=== PATIENT | female | born 1955 | race African-American/Black ===

== ENCOUNTER 2016-12-28 22:39 | Emergency (ER) | payer MEDICARE, MEDICAID ==
[~2016-12-28] VITALS: Ht 162.6 cm; Wt 59.0 kg
[~2016-12-28 22:39] MED LIST: ALBUTEROL SULF8.5 GM INH; AZITHROMYCIN250 MG ORAL; IBUPROFEN600 MG ORAL; NKM; NORVIR100 MG ORAL; TRUVADA 200 MG1 EAC1 ORAL; [UNRECOGNIZED DRUG - OTHER] PO
[2016-12-28] MEDS ORDERED: NKM (23:25)
[2016-12-28] MEDS ORDERED: Ketorolac 60mg Inj IM ONE (23:45)
[2016-12-29] MEDS ORDERED: IBUPROFEN600 M1 PO (01:30)
[2016-12-29] MEDS ORDERED: CYCLOBENZAPRINE10 MG ORAL (01:30)
[2016-12-29 01:40] VITALS: BP 132/84
--- NOTE | 2016-12-29 11:36 | Diagnostic Imaging Report ---
Indication: PAIN Technique: 3 views of the lumbar spine Comparison: None Findings:Bony alignment is normal. Vertebral body heights are preserved. The disc spaces are preserved. The pedicles are intact. Sacral arches are preserved. Sacroiliac joint spaces are preserved. Impression:Negative This agrees with the preliminary interpretation provided by the emergency room physician
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
--- NOTE | 2016-12-29 12:00 | Diagnostic Imaging Report ---
Indication: PAIN Technique: 3 views of the cervical spine Comparison: none Findings: Lateral view is slightly blurry. No prevertebral soft tissue swelling. No acute fractures. No dislocations. Is degenerative narrowing of the C4-5 disc, minimally of the C2-3 disc. Remainder of the disc spaces are preserved. Impression: No acute bony trauma Degenerative changes, as described This agrees with the preliminary interpretation provided by the emergency room physician
--- NOTE | 2016-12-29 14:26 | Diagnostic Imaging Report ---
Indication: PAIN Technique: 3 views of the left knee Comparison: None Findings:Joint spaces are preserved. No acute fractures. No dislocations. No suprapatellar effusion. Impression:Negative This agrees with the preliminary interpretation provided by the emergency room physician
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
== END 2016-12-29 01:40 | disposition home or self-care (01) ==
LOC: EMR 23:55
DX: S39.012A Strain of muscle, fascia and tendon of lower back, initial encounter (principal); S16.1XXA Strain of muscle, fascia and tendon at neck level, initial encounter; S40.012A Contusion of left shoulder, initial encounter; V43.52XA Car driver injured in collision with other type car in traffic accident, initial encounter; Y93.9 Activity, unspecified; Y92.410 Unspecified street and highway as the place of occurrence of the external cause; J45.909 Unspecified asthma, uncomplicated
CPT/HCPCS: 72020; 72040; 99284

== ENCOUNTER 2018-06-26 00:12 | Inpatient (IN) | payer MEDICARE, MEDICAID ==
[~2018-06-26] VITALS: Ht 170.2 cm; Wt 64.0 kg
[2018-06-26] VITALS (7 sets, daily range): BP systolic 98–120; BP diastolic 67–83
[~2018-06-26 00:12] MED LIST changes: +CYCLOBENZAPRINE10 MG ORAL; +IBUPROFEN600 M1 PO
[2018-06-26] MEDS ORDERED: Sodium Chloride 500ML 500 ML IV ONE (00:48)
--- NOTE | 2018-06-26 00:50 | Emergency Room Report ---
History of Present Illness General Chief Complaint: General Complaint Source: Patient Present Illness HPI Patient present with complaints of cough and congestion Ongoing for the past several days patient reports that she recently flew back from a Has been having increased mucus production Denies any vomiting or diarrhea Patient had complained of pain to the upper chest region Mainly has a discomfort with cough Otherwise denies any chest heaviness denies any calf pain or swelling Patient does have green phlegm production with the cough Allergies: Coded Allergies: No Known Allergies (Unverified , 09/13/15) Patient History Past Medical History: see triage record Pertinent Family History: none Now: No Reviewed Nursing Documentation: PMH: Agreed; PSxH: Agreed Nursing Documentation-PMH Hx Asthma: Yes Review of Systems All Other Systems: negative except mentioned in HPI Physical Exam Vital Signs Date Time Temp Pulse Resp B/P (MAP) Pulse Ox O2 Delivery O2 Flow Rate FiO2 06/26/18 00:19 98.4 90 16 102/69 98 Room Air 98.4 Sp02 EP Interpretation: reviewed, normal General Appearance: well appearing, no apparent distress Head: normocephalic, atraumatic Eyes: bilateral eye PERRL, bilateral eye EOMI ENT: hearing grossly normal, normal pharynx, TMs + canals normal, uvula midline Neck: full range of motion, supple, no meningismus, no bony tend Respiratory: lungs clear, normal breath sounds, no rhonchi, no respiratory distress, no retraction, no accessory muscle use Cardiovascular #1: normal peripheral pulses, regular rate, rhythm, no edema, no gallop, no JVD, no murmur Gastrointestinal: normal bowel sounds, non tender, soft, no mass, no organomegaly, non-distended, no guarding, no hernia, no pulsatile mass, no rebound Genitourinary: no CVA tenderness Musculoskeletal: normal inspection Neurologic: oriented x3, responsive, mobile product manager III-XII nml as tested, motor strength/ tone normal, sensory intact Psychiatric: mood/affect normal Skin: normal color, no rash, warm/dry, palpation normal Lymphatic: normal inspection, no adenopathy Medical Decision Making Diagnostic Impression: Primary Impression: ACS (acute coronary syndrome) ER Course Patient is a fairly complex patient with multiple differential to consideration including but not limited to cardiac cardiopulmonary and vascular emergencies Patient's EKG shows nonspecific changes Troponin is negative Patient's x-ray on the right lower lobe shows questionable marking however likely biological grisel Patient was provided with aspirin given the EKG changes and the patient's complaints she was admitted for further inpatient care D-dimer was negative Labs Test 06/26/18 01:20 White Blood Count 10.3 K/UL (4.8-10.8) Red Blood Count 5.56 M/UL (4.20-5.40) Hemoglobin 16.9 G/DL (12.0-16.0) Hematocrit 50.6 % (37.0-47.0) Mean Corpuscular Volume 91 FL (80-99) Mean Corpuscular Hemoglobin 30.3 PG (27.0-31.0) Mean Corpuscular Hemoglobin Concent 33.3 G/DL (32.0-36.0) Red Cell Distribution Width 12.2 % (11.6-14.8) Platelet Count 250 K/UL (150-450) Mean Platelet Volume 7.0 FL (6.5-10.1) Neutrophils (%) (Auto) 61.9 % (45.0-75.0) Lymphocytes (%) (Auto) 29.6 % (20.0-45.0) Monocytes (%) (Auto) 6.2 % (1.0-10.0) Eosinophils (%) (Auto) 1.7 % (0.0-3.0) Basophils (%) (Auto) 0.6 % (0.0-2.0) D-Dimer 0.29 mg/L FEU (0.00-0.49) Sodium Level 141 MMOL/L (136-145) Potassium Level 3.9 MMOL/L (3.5-5.1) Chloride Level 105 MMOL/L (98-107) Carbon Dioxide Level 28 MMOL/L (21-32) Anion Gap 8 mmol/L (5-15) Blood Urea Nitrogen 33 mg/dL (7-18) Creatinine 1.5 MG/DL (0.55-1.30) Estimat Glomerular Filtration Rate 42.9 mL/min (>60) Glucose Level 93 MG/DL (74-106) Calcium Level 10.3 MG/DL (8.5-10.1) Total Bilirubin 0.2 MG/DL (0.2-1.0) Aspartate Amino Transf (AST/SGOT) 23 U/L (15-37) Alanine Aminotransferase (ALT/SGPT) 28 U/L (12-78) Alkaline Phosphatase 107 U/L (46-116) Total Creatine Kinase 86 U/L (26-308) Creatine Kinase MB 0.7 NG/ML (0.0-3.6) Creatine Kinase MB Relative Index 0.8 Troponin I 0.002 ng/mL (0.000-0.056) Pro-B-Type Natriuretic Peptide 84 pg/mL (0-125) Total Protein 8.8 G/DL (6.4-8.2) Albumin 3.8 G/DL (3.4-5.0) Globulin 5.0 g/dL Albumin/Globulin Ratio 0.8 (1.0-2.7) EKG Diagnostic Results Rate: normal Rhythm: NSR ST Segments: other - Nonspecific ST changes Rhythm Strip Diag. Results EP Interpretation: yes Rate: 67 Rhythm: NSR, no PVC's, no ectopy Chest X-Ray Diagnostic Results Chest X-Ray Diagnostic Results : Chest X-Ray Ordered: Yes # of Views/Limited/Complete: 1 View Indication: Chest Pain EP Interpretation: Yes Interpretation: no consolidation, no effusion, no pneumothorax, other - Nonspecific right lower lobe marking Impression: No acute disease Electronically Signed by: González Wells DO Last Vital Signs Date Time Temp Pulse Resp B/P (MAP) Pulse Ox O2 Delivery O2 Flow Rate FiO2 06/26/18 00:19 98.4 90 16 102/69 98 Room Air 98.4 Status: improved Disposition: ADMITTED INPATIENT Condition: Serious Gonzláez Wells DO Jun 26, 2018 00:50
[2018-06-26] MEDS ORDERED: Ketorolac 30mg Inj IV ONE (01:00)
[2018-06-26] MEDS ORDERED: Norco 5mg/325mg tab ORAL ONE (01:00)
[2018-06-26 01:30] LABS: BASOPHILS % (AUTO) 0.6 % (0.0-2.0); EOSINOPHILS % (AUTO) 1.7 % (0.0-3.0); HEMATOCRIT 50.6 % (37.0-47.0); HEMOGLOBIN 16.9 G/DL (12.0-16.0); LYMPHOCYTES % (AUTO) 29.6 % (20.0-45.0); MEAN CORPUSCULAR VOLUME 91 FL (80-99); MONOCYTES % (AUTO) 6.2 % (1.0-10.0); NEUTROPHILS % (AUTO) 61.9 % (45.0-75.0); PLATELET COUNT 250 K/UL (150-450); RED BLOOD COUNT 5.56 M/UL (4.20-5.40); RED CELL DISTRIBUTION WIDTH 12.2 % (11.6-14.8); WHITE BLOOD COUNT 10.3 K/UL (4.8-10.8)
[2018-06-26 01:50] LABS: ANION GAP 8 mmol/L (5-15); BLOOD UREA NITROGEN 33 mg/dL (7-18); CALCIUM 10.3 MG/DL (8.5-10.1); CARBON DIOXIDE 28 MMOL/L (21-32); CHLORIDE 105 MMOL/L (98-107); CREATININE 1.5 MG/DL (0.55-1.30); POTASSIUM 3.9 MMOL/L (3.5-5.1); SODIUM 141 MMOL/L (136-145)
[2018-06-26 02:04] LABS: ALANINE AMINOTRANSFERASE 28 U/L (12-78); ALBUMIN 3.8 G/DL (3.4-5.0); ALBUMIN/GLOBULIN RATIO 0.8 (1.0-2.7); ALKALINE PHOSPHATASE 107 U/L (46-116); ASPARTATE AMINO TRANSFERASE 23 U/L (15-37); BILIRUBIN,TOTAL 0.2 MG/DL (0.2-1.0); CKMB 0.7 NG/ML (0.0-3.6); CREATINE KINASE 86 U/L (26-308)
[2018-06-26] MEDS ORDERED: Nitroglycerin 2% oint pkt TOPIC ONE (03:30)
[2018-06-26] MEDS ORDERED: NORVIR100 M2 (05:54)
[2018-06-26] MEDS ORDERED: PREZISTA600 MG (05:54)
[2018-06-26] MEDS ORDERED: TRUVADA1 TAB (05:54)
[2018-06-26 08:33] LABS: CHOLESTEROL 183 MG/DL (< 200); HDL CHOLESTEROL 51 MG/DL (40-60); TRIGLYCERIDES 85 MG/DL (30-150)
[2018-06-26] MEDS: Aspirin Baby 81mg ORAL SCH (08:44)
[2018-06-26] MEDS: Heparin 5000 units/ml inj SUBQ SCH ×2 (08:49→20:42)
--- NOTE | 2018-06-26 10:13 | Diagnostic Imaging Report ---
Indication: Shortness of breath Technique: One view of the chest Comparison: 10/25/2015 Findings: Nodular opacity at the right lung base appears similar to the prior study, likely represents a nipple shadow as a similar opacity projects just outside the chest wall on the left. Lungs and pleural spaces are otherwise clear. Heart size is normal. The aorta is calcified. Impression: No acute process
[2018-06-26] MEDS ORDERED: Ritonavir 100mg tab ORAL SCH (12:30)
[2018-06-26] MEDS ORDERED: Darunavir 600mg tab ORAL SCH (12:30)
[2018-06-26] MEDS: cefTRIAXone 1 GM in D5W 55 ML IVPB SCH (16:18)
[2018-06-26] MEDS: Azithromycin 500 MG in D5W 275 ML IV SCH (16:19)
[2018-06-26] MEDS ORDERED: Patient's Own Med - Norvir 100mg ORAL SCH (18:00)
[2018-06-26] MEDS: Albuterol/Ipratropium 3ml neb HHN SCH ×2 (19:07→23:06)
[2018-06-26] MEDS: Patient's Own Med - Norvir 100mg ORAL SCH (20:40)
[2018-06-26] MEDS: HYDROcodone/Acetamin 10/325 tab ORAL PRN (20:53)
--- NOTE | 2018-06-26 22:45 | Consultation ---
DATE OF ADMISSION: 06/26/2018 HISTORY & PHYSICIAL REASON FOR ADMISSION: Chest pain, cough, and shortness of breath. HISTORY OF PRESENT ILLNESS: This is a 62-year-old female, who is HIV positive, but does not have any known history of cardiovascular disease. She has had several days of progressive cough and congestion. She has felt worse yesterday and developed chest pain prompting her to come to the emergency room. She is usually compliant with medications. She has continued to smoke, but has decreased her smoking significantly. The patient has had stressors including a recent . PAST MEDICAL HISTORY: HIV and COPD. MEDICATIONS: Reviewed and reconciled. ALLERGIES: None known. FAMILY HISTORY: Noncontributory. SOCIAL HISTORY: Negative for alcohol or substance abuse at this time. She does continue to smoke and has a [id number] smoking history. REVIEW OF SYSTEMS: No fevers or chills. Her sputum is green. She has not been on steroids. She does not use inhalers regularly. She denies any history of endocarditis, rheumatic heart disease, or high blood pressure. There is no history of thyroid disorder or diabetes. There is no history of seizure or stroke. She has not noted any change in bowel or urinary habits. She takes HIV medications regularly and has not had any opportunistic infections. OBJECTIVE: VITAL SIGNS: Blood pressure 102/69, pulse 90, respirations 16, afebrile, and room air oxygen saturations 98%. GENERAL: Thin and frail, but in no acute distress. HEENT: Conjunctivae pink. Oropharynx clear. Mucous membranes moist. No thrush. NECK: Supple. Jugular venous pressure normal. LUNGS: With coarse breath sounds and rhonchi. No wheezing. CARDIAC: Regular rhythm and rate. Normal S1, S2. No murmur, rub, or gallop. BREASTS: Without discrete masses. ABDOMEN: Soft and nontender. EXTREMITIES: Good pulses. No edema. NEUROLOGIC: Nonfocal. SKIN: Intact. DIAGNOSTIC DATA: EKG sinus rhythm with nonspecific ST-T wave changes. Troponin level negative x2. Albumin 3.8. BUN 33 and creatinine 1.5. Sodium 141, bicarb 28, and potassium 3.9. Total cholesterol is 183 with LDL of 106 and HDL 51. Chest x-ray reveals no acute process. IMPRESSION: 1. Pleuritic chest pain. Low suspicion for acute coronary insufficiency. 2. Acute bronchitis. 3. Paroxysmal bronchospasm. 4. Nicotine addiction. 5. HIV-positive. 6. Acute kidney injury likely due to hypovolemia and dehydration. PLAN: 1. Cardiac monitoring. 2. Repeat troponin. 3. Anti-platelet therapy with aspirin. 4. Intravenous fluid hydration. 5. Inhaled bronchodilators. 6. Empiric antibiotics. 7. Sputum cultures. 8. DVT prophylaxis. 9. Continue HIV regimen. Tyrell Duran M.D. DR: OLI JOB#: [id number] CC: BELLE
[2018-06-27] VITALS: BP 97/56
[2018-06-27] MEDS: Albuterol/Ipratropium 3ml neb HHN SCH ×6 (03:24→22:49)
[2018-06-27 04:00] VITALS: BP 102/57
[2018-06-27 08:00] VITALS: BP 102/58
[2018-06-27 08:08] LABS: BASOPHILS % (AUTO) 0.6 % (0.0-2.0); EOSINOPHILS % (AUTO) 1.7 % (0.0-3.0); HEMATOCRIT 44.2 % (37.0-47.0); HEMOGLOBIN 14.5 G/DL (12.0-16.0); LYMPHOCYTES % (AUTO) 32.2 % (20.0-45.0); MEAN CORPUSCULAR VOLUME 90 FL (80-99); MONOCYTES % (AUTO) 5.2 % (1.0-10.0); NEUTROPHILS % (AUTO) 60.3 % (45.0-75.0); PLATELET COUNT 230 K/UL (150-450); RED CELL DISTRIBUTION WIDTH 12.3 % (11.6-14.8); WHITE BLOOD COUNT 7.2 K/UL (4.8-10.8)
[2018-06-27 08:42] LABS: ALANINE AMINOTRANSFERASE 23 U/L (12-78); ALBUMIN 3.3 G/DL (3.4-5.0); ALBUMIN/GLOBULIN RATIO 0.7 (1.0-2.7); ALKALINE PHOSPHATASE 85 U/L (46-116); ANION GAP 7 mmol/L (5-15); ASPARTATE AMINO TRANSFERASE 16 U/L (15-37); BILIRUBIN,TOTAL 0.3 MG/DL (0.2-1.0); BLOOD UREA NITROGEN 19 mg/dL (7-18); CALCIUM 9.1 MG/DL (8.5-10.1); CARBON DIOXIDE 28 MMOL/L (21-32); CHLORIDE 106 MMOL/L (98-107); POTASSIUM 4.6 MMOL/L (3.5-5.1); SODIUM 140 MMOL/L (136-145)
[2018-06-27] MEDS: cefTRIAXone 1 GM in D5W 55 ML IVPB SCH (08:52)
[2018-06-27] MEDS: Aspirin Baby 81mg ORAL SCH (08:52)
[2018-06-27] MEDS: Patient's Own Med - Truvada 200/300mg ORAL SCH (08:53)
[2018-06-27] MEDS: Patient's Own Med - Norvir 100mg ORAL SCH ×2 (08:53→20:18)
[2018-06-27] MEDS: Heparin 5000 units/ml inj SUBQ SCH ×2 (08:54→20:21)
[2018-06-27 12:00] VITALS: BP 113/77
[2018-06-27] MEDS: Azithromycin 500 MG in D5W 275 ML IV SCH (15:57)
[2018-06-27 16:00] VITALS: BP 128/69
[2018-06-27 20:00] VITALS: BP 112/77
[2018-06-27] MEDS: HYDROcodone/Acetamin 10/325 tab ORAL PRN (20:45)
--- NOTE | 2018-06-27 23:15 | Consultation ---
DATE OF CONSULTATION: 06/27/2018 INFECTIOUS DISEASES CONSULTATION CONSULTING PHYSICIAN: Reg Delgado M.D. REFERRING PHYSICIAN: Tyrell Duran M.D. REASON FOR CONSULTATION: Pneumonia. HISTORY OF PRESENTING ILLNESS: This is a 62-year-old lady with history of HIV as well as asthma and COPD, who comes in with fever and chills along with cough, congestion, and shortness of breath. An Infectious Diseases consultation has been obtained for antibiotics. PAST MEDICAL HISTORY: 1. History of HIV. 2. COPD. 3. History of asthma. 4. History of shingles. She does not recall any other opportunistic infections. SOCIAL HISTORY: She is a smoker. She used to drink alcohol, not any more. She has history of cocaine, snorting previously. No history of intravenous drug use. FAMILY HISTORY: Noncontributory. REVIEW OF SYSTEMS: RESPIRATORY: She had fever and chills. She has cough. She has shortness of breath. CARDIAC: She has chest pain. No palpitations. No dizziness. No syncope. GASTROINTESTINAL: She denies any nausea. She had vomiting. No abdominal pain or diarrhea. MUSCULOSKELETAL: She complains of back pain. MEDICATIONS: As an inpatient, she is taking her HIV medications, albuterol, ipratropium, azithromycin, ceftriaxone, aspirin, subcu heparin, and [place]. ALLERGIES: No known drug allergies. PHYSICAL EXAMINATION: VITAL SIGNS: Temperature of 97.9 degrees, T-max of 98 degrees, pulse of 77, respiratory rate of 18, blood pressure 102/58, and O2 saturation of 97%. HEENT: Pupils are equally reactive to light and accommodation. Mouth appears clean without thrush. NECK: Supple. No adenopathy. No JVD. CARDIOVASCULAR: Regular rate and rhythm. No murmurs. LUNGS: Clear to auscultation bilaterally. No crackles. No wheezes. ABDOMEN: Soft and nontender. No organomegaly. EXTREMITIES: No cyanosis, no clubbing, and no edema. LABORATORY AND DIAGNOSTIC DATA: White count 7.2, hemoglobin 14.5, hematocrit 44.2, MCV 90, platelet count of 230,000, and neutrophils of 60%. Sodium 140, potassium 4.6, chloride 106, bicarb 28, BUN 19, creatinine 1, glucose 81, and calcium 9.1. Total bilirubin 0.3. AST 16, ALT 23, and alkaline phosphatase 85. Troponin 0. Total protein 7.8. Albumin 3.3. Chest x-ray showing nodular opacity in the right lung base. ASSESSMENT: This is a 62-year-old lady with, 1. History of HIV with unknown T-cell count, who comes in with possible bronchitis exacerbation, would like to rule out pneumonia as a possibility. 2. History of HIV. 3. History of asthma. PLAN: 1. We will order sputum for Gram-stain and culture. 2. We will order for serum Legionella antibody and mycoplasma serology. 3. Continue ceftriaxone and azithromycin. 4. We will order a T-cell count per the patient's request. 5. We will continue anti-retrovirals. 6. We will follow up cultures and adjust antibiotics accordingly. I would like to thank, Dr. Duran for this consultation. Reg Delgado M.D. DR: MELANIE JOB#: [id number] CC: Tyrell Duran M.D.
[2018-06-28] VITALS (7 sets, daily range): BP systolic 102–127; BP diastolic 63–90
[2018-06-28] MEDS: Albuterol/Ipratropium 3ml neb HHN SCH ×6 (03:35→23:00)
--- NOTE | 2018-06-28 04:45 | Progress Note ---
DATE: 06/27/2018 INTERNAL MEDICINE AND CARDIOLOGY PROGRESS NOTE SUBJECTIVE: The patient still has cough and congestion, but feels better with less shortness of breath. Sputum production is still present; however, there is no specimen in the micro lab. No results of specimen yet in the micro lab. OBJECTIVE: LUNGS: Coarse breath sounds. Scattered rhonchi. No wheezing. HEART: Regular rhythm and rate. Normal S1 and S2. ABDOMEN: Soft. EXTREMITIES: No edema. LABORATORY STUDIES: White count 7.2 and hemoglobin 14.5. Chemistry panel within normal limits other than BUN of 19 and creatinine 1. Troponin negative. Albumin 3.3. nuclear monitoring technician, sinus with occasional PVCs. IMPRESSION: 1. Chronic obstructive pulmonary disease exacerbation. 2. Bronchopneumonia. 3. Mild protein-calorie malnutrition. 4. HIV positive. 5. Prerenal azotemia with acute kidney injury, improving. 6. Hypovolemia and dehydration, improving. 7. Nonsustained ventricular ectopy. PLAN: 1. Adjust IV fluids. 2. Maintain IV antimicrobials. 3. Await sputum cultures. 4. Inhaled bronchodilators. 5. Infectious Disease consultation pending regarding HIV regimen. 6. Discontinue telemetry. Tyrell Duran M.D. : NOELLE JOB#: [id number] CC:
[2018-06-28] MEDS: Aspirin Baby 81mg ORAL SCH (08:46)
[2018-06-28] MEDS: cefTRIAXone 1 GM in D5W 55 ML IVPB SCH (08:47)
[2018-06-28] MEDS: Patient's Own Med - Truvada 200/300mg ORAL SCH (08:48)
[2018-06-28] MEDS: Patient's Own Med - Norvir 100mg ORAL SCH (08:48)
[2018-06-28] MEDS: Heparin 5000 units/ml inj SUBQ SCH ×2 (08:50→21:25)
[2018-06-28] MEDS: HYDROcodone/Acetamin 10/325 tab ORAL PRN (08:53)
--- NOTE | 2018-06-28 10:15 | Diagnostic Imaging Report ---
Indication: Abnormal chest sounds Technique: 2 views of the chest Comparison: 06/26/2018 Findings: Band of atelectasis or scarring is seen posteriorly on the lateral view, probably on the left although not well seen on PA view. Lungs and pleural spaces are otherwise clear. The heart size is normal. The aorta is calcified Impression: No acute process
[2018-06-28] MEDS: Azithromycin 500 MG in D5W 275 ML IV SCH (16:04)
--- NOTE | 2018-06-28 16:11 | Diagnostic Imaging Report ---
APPROVED REPORT CPT Code: 18032 Present Symptoms Comments: BILATERAL LEGS PAIN. BILATERAL: Imaging reveals a patent deep venous system bilaterally. There is no evidence of thrombus within the femoral, popliteal or tibial segments. The greater saphenous veins are also within normal limits. Doppler indicates normal spontaneous flow within these segments.
--- NOTE | 2018-06-28 19:35 | Cardiology Report ---
APPROVED REPORT EXAM: Two-dimensional and M-mode echocardiogram with Doppler and color Doppler. INDICATION Chest Pain M-Mode DIMENSIONS IVSd1.1 (0.7-1.1cm)Left Atrium (MM)3.5 (1.6-4.0cm) LVDd4.8 (3.5-5.6cm)Aortic Root2.5 (2.0-3.7cm) PWd1.1 (0.7-1.1cm)Aortic Cusp Exc.1.6 (1.5-2.0cm) IVSs2.8 cm LVDs1.4 (2.5-4.0cm) Normal left ventricular chamber size, systolic function and wall motion Left ventricular ejection fraction estimated to be 65-70 %. No evidence of left ventricular hypertrophy . No evidence of pericardial effusion.. All other cardiac chamber sizes are within normal limits. Focal aortic valve sclerosis with adequate cusp excursion. Mildly Thickened mitral valve leaflets with normal excursion. Mildly Mitral annulus and aortic root calcification. Pulmonic valve not well visualized. Normal tricuspid valve structure. IVC at normal size cm normal size with physiologic collapse. A color flow and spectral Doppler study was performed and revealed: No aortic insufficiency . Trace mitral regurgitation. Mitral diastolic velocities suggest reduced left ventricular relaxation c/w mild LV diastolic dysfunction (Grade I ). Mild tricuspid regurgitation. Tricuspid systolic velocities suggests peak right ventricular systolic pressure of 36mmHg, consistent with mild pulmonary hypertension .
--- NOTE | 2018-06-28 19:50 | Cardiology Report ---
APPROVED REPORT EKG Measurement Heart [id number] ND [id number] Normal sinus rhythm Biatrial enlargement Abnormal ECG
[2018-06-28] MEDS ORDERED: HYDROcodone/Acetamin 10/325 tab ORAL PRN (21:00)
[2018-06-28] MEDS: NORVIR 100 MG ORAL SCH (21:25)
[2018-06-28] MEDS: PREZISTA 600 MG ORAL SCH (21:26)
[2018-06-29] VITALS: BP 112/66
[2018-06-29] MEDS: Albuterol/Ipratropium 3ml neb HHN SCH ×6 (03:00→23:59)
[2018-06-29 04:00] VITALS: BP 112/80
[2018-06-29 07:56] VITALS: BP 121/81
[2018-06-29] MEDS: Aspirin Baby 81mg ORAL SCH (08:27)
[2018-06-29] MEDS: NORVIR 100 MG ORAL SCH ×2 (08:27→20:09)
[2018-06-29] MEDS: TRUVADA ORAL SCH (08:28)
[2018-06-29] MEDS: Heparin 5000 units/ml inj SUBQ SCH ×2 (08:30→20:12)
[2018-06-29] MEDS: PREZISTA 600 MG ORAL SCH ×2 (08:31→20:09)
[2018-06-29] MEDS: HYDROcodone/Acetamin 10/325 tab ORAL PRN ×2 (08:34→20:13)
[2018-06-29] MEDS: cefTRIAXone 1 GM in D5W 55 ML IVPB SCH (09:02)
--- NOTE | 2018-06-29 10:45 | Progress Note ---
DATE: 06/28/2018 CARDIOLOGY PROGRESS NOTE SUBJECTIVE: The patient has less congestion and cough. She still has episodes of wheezing. Sputum is still thick. OBJECTIVE: VITAL SIGNS: Blood pressure 127/90, pulse 76, respiratory rate 21, afebrile. LUNGS: Coarse breath sounds. Scattered rhonchi. HEART: Regular rhythm and rate. Normal S1, S2. ABDOMEN: Soft. EXTREMITIES: Trace edema. LABORATORY AND DIAGNOSTIC DATA: No laboratories today. Sputum culture revealed normal pk. No acute process on chest x-ray. count 134. IMPRESSION: 1. Acute bronchitis. 2. Paroxysmal bronchospasm. 3. COPD exacerbation. 4. HIV-positive. 5. Pleuritic chest pain. 6. Mild protein-calorie malnutrition. PLAN: 1. Await final laboratory results. 2. Obtain nebulizer for home use. 3. Discharge planning. 4. Complete antibiotics. Tyrell Duran M.D. DR: Radha JOB#: [id number] CC:
--- NOTE | 2018-06-29 11:11 | Infectious Diseases Prog Note ---
Assessment/Plan Assessment/Plan antibiotics : ceftriaxone, azithromycin A 1. bronchitis exacerbation 2. HIV 3. history of asthma P 1. continue ceftriaxone, azithromycin 2. will follow up cultures Subjective Constitutional: Denies: fever, chills Respiratory: Reports: shortness of breath - decreased, dry cough - decreased Gastrointestinal/Abdominal: Reports: nausea; Denies: vomiting, diarrhea Musculoskeletal: Denies: pain Allergies: Coded Allergies: No Known Allergies (Unverified , 09/13/15) Objective Vital Signs Last 24 Hour Vital Signs Date Time Temp Pulse Resp B/P (MAP) Pulse Ox O2 Delivery O2 Flow Rate FiO2 06/29/18 08:13 82 16 100 Room Air 21 06/29/18 08:03 82 16 93 Room Air 21 06/29/18 07:56 97.7 71 18 121/81 (94) 96 97.7 06/29/18 07:48 Room Air 06/29/18 04:08 Room Air 06/29/18 04:07 Room Air 06/29/18 04:00 97.7 76 18 112/80 (91) 96 97.7 06/29/18 00:00 98.0 77 18 112/66 (81) 96 98.0 06/28/18 23:21 Room Air 06/28/18 23:21 Room Air 06/28/18 21:00 Room Air 06/28/18 20:45 98.0 94 18 105/76 (86) 93 98.0 06/28/18 20:00 97.7 76 21 127/90 (102) 91 97.7 06/28/18 19:56 72 16 98 Room Air 21 06/28/18 19:47 79 18 94 Room Air 21 06/28/18 16:00 70 06/28/18 16:00 98.0 87 20 127/64 (85) 96 98.0 06/28/18 15:38 Room Air 21 06/28/18 15:38 Room Air 21 06/28/18 12:00 76 06/28/18 12:00 97.7 82 18 108/67 (81) 96 97.7 06/28/18 11:32 70 18 100 Room Air 21 06/28/18 11:25 71 18 98 Room Air 21 Height (Feet): 5 Height (Inches): 7.00 Weight (Pounds): 141 Respiratory/Chest: lungs clear Cardiovascular: normal rate, regular rhythm, no gallop/murmur Abdomen: soft, non tender Extremities: no edema Microbiology Date/Time Source Procedure Growth Status 06/26/18 21:00 Sputum Gram Stain - Final Complete 06/26/18 21:00 Sputum Sputum Culture - Final NORMAL UPPER RESPIRATORY ALVERTO PRESENT Complete Current Medications Medications (Trade) Dose Ordered Sig/Zak Route PRN Reason Start Time Stop Time Status Last Admin Dose Admin Acetaminophen/ Hydrocodone Bitart ([place] 10/325) 1 tab Q4H PRN ORAL For Pain (4-10) 06/29/18 01:00 07/03/18 20:59 06/29/18 08:34 Albuterol/ Ipratropium (Albuterol/ Ipratropium) 3 ml Q4HRT HHN 06/28/18 23:00 07/01/18 14:59 06/29/18 08:03 Aspirin (ASA) 81 mg DAILY ORAL 06/29/18 09:00 07/26/18 08:59 06/29/18 08:27 Azithromycin 500 mg/Dextrose 275 ml @ 275 mls/hr Q24HRS IV 06/29/18 15:00 07/02/18 15:59 Ceftriaxone Sodium 1 gm/ Dextrose 55 ml @ 110 mls/hr DAILY IVPB 06/29/18 09:00 07/03/18 13:59 06/29/18 09:02 Heparin Sodium (Porcine) (Heparin 5000 units/ml) 5,000 units EVERY 12 HOURS SUBQ 06/28/18 21:00 07/26/18 08:59 06/29/18 08:30 Patient Own Medication (Patient's Own Med) 1 ea DAILY ORAL 06/29/18 09:00 07/27/18 08:59 06/29/18 08:28 Patient Own Medication (Patient's Own Med) 1 ea Q12HR ORAL 06/28/18 21:00 07/26/18 20:59 06/29/18 08:27 Patient Own Medication (Patient's Own Med) 1 ea Q12HR ORAL 06/28/18 21:00 07/26/18 20:59 06/29/18 08:31 Sodium Chloride 1,000 ml @ 125 mls/hr Q8H IV 06/28/18 20:45 07/26/18 12:44 06/29/18 04:28 MIRTHA PORTER Jun 29, 2018 11:11
[2018-06-29 12:00] VITALS: BP 108/78
[2018-06-29] MEDS ORDERED: Azithromycin 500 MG in D5W 275 ML IV SCH (15:00)
[2018-06-29 16:00] VITALS: BP 121/83
[2018-06-29 20:00] VITALS: BP 117/53
[2018-06-30] VITALS: BP 116/68
[2018-06-30] MEDS: Albuterol/Ipratropium 3ml neb HHN SCH ×4 (03:00→15:59)
[2018-06-30 04:00] VITALS: BP 120/80
--- NOTE | 2018-06-30 05:30 | Progress Note ---
DATE: 06/29/2018 CARDIOLOGY AND INTERNAL MEDICINE PROGRESS NOTE SUBJECTIVE: The patient is feeling better. Still with congestion and mucus production. Cultures are with normal pk. Less shortness of breath. We ordered a nebulizer for her to continue and inhaled bronchodilator therapy as an outpatient. OBJECTIVE: VITAL SIGNS: Blood pressure 116/68, pulse 77, and respirations 19. LUNGS: Coarse breath sounds. Few rhonchi. HEART: Regular rhythm and rate. Normal S1, S2. ABDOMEN: Soft. EXTREMITIES: No edema. LABORATORY DATA: CD4 count is 934. Mycoplasma IgG titers are elevated. IMPRESSION: 1. Acute bronchitis. 2. HIV. 3. Asthma exacerbation. 4. Possible acute mycoplasma infection. PLAN: 1. Antimicrobials. 2. Inhaled bronchodilators. 3. Human immunodeficiency virus regimen. 4. Discharge planning home is available. Tyrell Duran M.D. DR: SANDIE JOB#: [id number] CC:
[2018-06-30 08:00] VITALS: BP 126/69
[2018-06-30] MEDS: TRUVADA ORAL SCH (09:53)
[2018-06-30] MEDS: Aspirin Baby 81mg ORAL SCH (09:53)
[2018-06-30] MEDS: cefTRIAXone 1 GM in D5W 55 ML IVPB SCH (09:53)
[2018-06-30] MEDS: NORVIR 100 MG ORAL SCH (09:54)
[2018-06-30] MEDS: PREZISTA 600 MG ORAL SCH (09:54)
[2018-06-30] MEDS: Heparin 5000 units/ml inj SUBQ SCH (09:55)
--- NOTE | 2018-06-30 11:00 | Infectious Diseases Prog Note ---
Assessment/Plan Assessment/Plan antibiotics : ceftriaxone, azithromycin A 1. bronchitis exacerbation 2. HIV 3. history of asthma P 1. d/c ceftriaxone, azithromycin 2. observe off antibiotics Subjective Constitutional: Denies: fever, chills Respiratory: Reports: shortness of breath - decreasing, dry cough - decreasing Gastrointestinal/Abdominal: Reports: nausea - decreased; Denies: vomiting, diarrhea Musculoskeletal: Reports: pain - in back Allergies: Coded Allergies: No Known Allergies (Unverified , 09/13/15) Objective Vital Signs Last 24 Hour Vital Signs Date Time Temp Pulse Resp B/P (MAP) Pulse Ox O2 Delivery O2 Flow Rate FiO2 06/30/18 08:00 Room Air 21 06/30/18 08:00 97.7 80 18 126/69 (88) 96 97.7 06/30/18 07:58 Room Air 21 06/30/18 04:00 98.1 70 18 120/80 (93) 98 98.1 06/30/18 03:24 Room Air 21 06/30/18 03:24 Room Air 21 06/30/18 00:07 81 18 99 Room Air 21 06/30/18 00:00 98.0 77 19 116/68 (84) 99 98.0 06/29/18 23:58 81 18 97 Room Air 21 06/29/18 21:00 Room Air 06/29/18 20:00 97.9 60 19 117/53 (74) 95 97.9 06/29/18 19:37 86 18 99 Room Air 21 06/29/18 19:27 78 18 95 Room Air 21 06/29/18 16:00 97.6 71 18 121/83 (96) 96 97.6 06/29/18 15:59 82 18 100 Room Air 21 06/29/18 15:49 82 20 100 Room Air 21 06/29/18 12:00 97.7 76 18 108/78 (88) 95 97.7 06/29/18 11:59 79 18 100 Room Air 21 06/29/18 11:49 79 18 97 Room Air 21 Height (Feet): 5 Height (Inches): 7.00 Weight (Pounds): 141 Respiratory/Chest: lungs clear Cardiovascular: normal rate, regular rhythm, no gallop/murmur Abdomen: soft, non tender Extremities: no edema Current Medications Medications (Trade) Dose Ordered Sig/Zak Route PRN Reason Start Time Stop Time Status Last Admin Dose Admin Acetaminophen/ Hydrocodone Bitart ([place] 10/325) 1 tab Q4H PRN ORAL For Pain (4-10) 06/29/18 01:00 07/03/18 20:59 06/29/18 20:13 Albuterol/ Ipratropium (Albuterol/ Ipratropium) 3 ml Q4HRT HHN 06/28/18 23:00 07/01/18 14:59 06/29/18 23:59 Aspirin (ASA) 81 mg DAILY ORAL 06/29/18 09:00 07/26/18 08:59 06/30/18 09:53 Azithromycin 500 mg/Dextrose 275 ml @ 275 mls/hr Q24HRS IV 06/29/18 15:00 07/02/18 15:59 06/29/18 15:01 Ceftriaxone Sodium 1 gm/ Dextrose 55 ml @ 110 mls/hr DAILY IVPB 06/29/18 09:00 07/03/18 13:59 06/30/18 09:53 Heparin Sodium (Porcine) (Heparin 5000 units/ml) 5,000 units EVERY 12 HOURS SUBQ 06/28/18 21:00 07/26/18 08:59 06/30/18 09:55 Patient Own Medication (Patient's Own Med) 1 ea DAILY ORAL 06/29/18 09:00 07/27/18 08:59 06/30/18 09:53 Patient Own Medication (Patient's Own Med) 1 ea Q12HR ORAL 06/28/18 21:00 07/26/18 20:59 06/30/18 09:54 Patient Own Medication (Patient's Own Med) 1 ea Q12HR ORAL 06/28/18 21:00 07/26/18 20:59 06/30/18 09:54 Sodium Chloride 1,000 ml @ 125 mls/hr Q8H IV 06/28/18 20:45 07/26/18 12:44 06/30/18 04:52 MIRTHA PORTER Jun 30, 2018 11:00
[2018-06-30 12:00] VITALS: BP 145/82
[2018-06-30] MEDS ORDERED: Tubing IV Secondary IV ONE (15:36)
[2018-06-30 16:00] VITALS: BP 128/91
--- NOTE | 2018-07-04 11:17 | Discharge Summary ---
Discharge Summary Discharge Summary _ DATE OF ADMISSION: 06/27/2018 DATE OF DISCHARGE: 06/30/2018 REASON FOR ADMISSION: 62 years old female with past medical history of HIV and COPD/asthma, presented with several days of progressive cough and congestion. She felt progressively worse and developed chest pain prompting her to contact emergency department. Patient reported compliance with medications. Patient continued smoking, but decreased significantly the amount of cigarettes. Vital signs were stable. Laboratory workup revealed no leukocytosis, hemoglobin 16.9 hematocrit 50.6. Troponin was negative. EKG revealed no acute ischemic changes. BUN 33, creatinine 1.5. Chest x-ray revealed no acute process. Venous duplex bilateral lower extremity revealed no evidence off DVT. Patient admitted with diagnoses of neurotic chest pain ( with low suspicion for acute coronary syndrome), acute bronchitis, paroxysmal bronchospasm, nicotine addiction, HIV positive status, acute kidney injury ,likely due to hypovolemia and dehydration. CONSULTANTS: ID specialist Dr. Delgado HOSPITAL COURSE: Patient admitted to telemetry floor for cardiac monitoring, and started on IV hydration. Serial troponin were negative. EKG revealed no acute ischemic changes . Patient was ruled out for acute myocardial infarction. Echocardiogram revealed preserved ejection fraction of 65-70% and right ventricular systolic pressure of 36 , consistent with mild pulmonary hypertension. No wall motion abnormalities noted. Antiplatelet therapy with aspirin was continued. Lipid panel revealed elevated LDL of 106. Patient was counseled on low-fat low-cholesterol diet. Renal parameters and electrolytes were closely monitored, electrolytes corrected as needed, and nephrotoxins were avoided. Subsequently acute kidney injury resolved; prior to discharge BUN 19 and creatinine 1.0. Patient started on empiric antibiotics. Supplemental oxygen provided as needed to keep pulse oximetry above 92%. Pulmonary toilet with bronchodilators provided. Pain management was addressed. DVT prophylaxis provided. ID specialist closely followed. Sputum culture was negative. No leukocytosis, no fevers. Follow-up chest x-ray revealed no acute cardiopulmonary pathology. Infectious disease specialist discontinued antibiotic and recommended to observe patient off antibiotics. Patient was counseled on smoking cessation. T-cell subsets revealed stable CD4 count of 934. HIV regimen continued. TSH was within normal limits. Patient clinically improved. and was stable for discharge FINAL DIAGNOSES: Pleuritic chest pain Acute bronchitis Paroxysmal bronchospasm Likely asthma exacerbation Nicotine addiction HIV status Acute kidney injury, likely due to hypovolemia and dehydration - resolved DISCHARGE MEDICATIONS: See Medication Reconciliation list. DISCHARGE INSTRUCTIONS: Patient was discharged home Follow up with primary care provider in one week. I have been assigned to dictate discharge summary for this account. I was not involved in the patient's management. Annette Brown NP Jul 04, 2018 11:17
== END 2018-06-30 19:50 | disposition home or self-care (01) | DRG 202 ==
LOC: EMR 00:52 → EDBEDREQ 03:03 → INTOOBSV 03:08 → 2E 03:08 → EDBEDREQ 04:04 → OBSVTOIN 06-27 18:11 → 3E 06-28 20:49
DX: J20.9 Acute bronchitis, unspecified (principal); B20 Human immunodeficiency virus [HIV] disease; J45.901 Unspecified asthma with (acute) exacerbation; N17.9 Acute kidney failure, unspecified; E44.1 Mild protein-calorie malnutrition; I27.20 Pulmonary hypertension, unspecified; R07.81 Pleurodynia; F17.200 Nicotine dependence, unspecified, uncomplicated; E86.1 Hypovolemia; E86.0 Dehydration; B02.9 Zoster without complications; I49.3 Ventricular premature depolarization
CPT/HCPCS: 36415; 71045; 71046; 80053; 80061; 82550; 82553; 83735; 83880; 84443; 84484; 85025; 85379; 86360; 86713; 86738; 87070; 87205; 93005; 93306; 93970; 94640; 94664; 96360; 96361; 96365; 96374; 99285; J7620

== ENCOUNTER 2018-12-15 20:58 | Emergency (ER) | payer MEDICARE, MEDICAID ==
[~2018-12-15] VITALS: Ht 167.6 cm; Wt 59.0 kg
[~2018-12-15 20:58] MED LIST changes: +NORVIR100 M2; +PREZISTA600 MG; +TRUVADA1 TAB
--- NOTE | 2018-12-15 21:09 | NUR ---
ED Nurse Note: PT CAME FROM HOME C/O OF CHEST PAIN X1 DAY RADIATING TO LEFT SHOULDER AND ARM PAIN 07/05 PT DENIES HX OF DIABETES AND HTN
[2018-12-15 21:14] VITALS: BP 128/88
--- NOTE | 2018-12-15 21:15 | NUR ---
ED Nurse Note: PT DENIES TRAUMA TO CHEST, LEFT ARM, AND LEFT SHOULDER
--- NOTE | 2018-12-15 21:25 | NUR ---
ED Nurse Note: BLOOD SENT TO LAB
[2018-12-15] MEDS ORDERED: Ketorolac 30mg Inj IV ONE (21:30)
[2018-12-15 21:34] LABS: BASOPHILS % (AUTO) 0.5 % (0.0-2.0); EOSINOPHILS % (AUTO) 0.9 % (0.0-3.0); HEMOGLOBIN 15.1 G/DL (12.0-16.0); LYMPHOCYTES % (AUTO) 25.1 % (20.0-45.0); MEAN CORPUSCULAR VOLUME 92 FL (80-99); MONOCYTES % (AUTO) 6.3 % (1.0-10.0); NEUTROPHILS % (AUTO) 67.2 % (45.0-75.0); PLATELET COUNT 274 K/UL (150-450); RED BLOOD COUNT 5.13 M/UL (4.20-5.40); RED CELL DISTRIBUTION WIDTH 12.2 % (11.6-14.8); WHITE BLOOD COUNT 11.7 K/UL (4.8-10.8)
[2018-12-15 21:44] LABS: ANION GAP 10 mmol/L (5-15); BLOOD UREA NITROGEN 23 mg/dL (7-18); CALCIUM 9.8 MG/DL (8.5-10.1); CARBON DIOXIDE 27 MMOL/L (21-32); CHLORIDE 101 MMOL/L (98-107); CREATININE 1.6 MG/DL (0.55-1.30); SODIUM 138 MMOL/L (136-145)
--- NOTE | 2018-12-15 21:48 | Diagnostic Imaging Report ---
EXAM: XR Right Shoulder Complete, 3 Views CLINICAL HISTORY: PAIN TECHNIQUE: 3 views of the right shoulder. COMPARISON: No relevant prior studies available. FINDINGS: Bones/joints: Irregularity is noted of the acromion which accounting for differences in technique grossly has a similar appearance compared to the prior exam. This is likely related to degenerative changes. Irregularity is noted of the greater tuberosity which has a similar appearance compared to the prior examination and is likely related to degenerative changes. No definite plain film evidence for acute fracture or dislocation. Soft tissues: Unremarkable. IMPRESSION: 1. Irregularity is noted of the acromion which accounting for differences in technique grossly has a similar appearance compared to the prior exam. This is likely related to degenerative changes. 2. Irregularity is noted of the greater tuberosity which has a similar appearance compared to the prior examination and is likely related to degenerative changes. 3. No definite plain film evidence for acute fracture or dislocation.
[2018-12-15] MEDS ORDERED: IBUPROFEN600 MG ORAL (22:12)
[2018-12-15] MEDS ORDERED: HYDROCODON-ACE1 EA15 ORAL (22:12)
--- NOTE | 2018-12-15 22:13 | Emergency Room Report ---
History of Present Illness General Chief Complaint: Pain Source: Patient Present Illness HPI This is a 63-year-old female who is right-hand dominant. She presents with left shoulder pain. Onset yesterday. There is some swelling. Pain is 9 out of 10. Throbbing in nature. Radiating to her left chest area. No nausea no vomiting. Worse with movement. Better with rest. No trauma. No fever. Allergies: Coded Allergies: No Known Allergies (Unverified , 09/13/15) Patient History Past Medical History: see triage record, old chart reviewed, asthma Past Surgical History: none Pertinent Family History: none Social History: Denies: smoking Last Menstrual Period: 2 decades ago Now: No Immunizations: other Reviewed Nursing Documentation: PMH: Agreed; PSxH: Agreed Nursing Documentation-PMH Hx Cardiac Problems: No - hiv Hx Asthma: Yes Hx Cancer: No Hx Gastrointestinal Problems: No Hx Neurological Problems: No Review of Systems Eye: Denies: eye pain, blurred vision ENT: Denies: ear pain, nose congestion, throat swelling Respiratory: Denies: cough, shortness of breath Cardiovascular: Reports: chest pain; Denies: palpitations Gastrointestinal: Denies: abdominal pain, diarrhea, nausea, vomiting Musculoskeletal: Reports: joint pain, joint swelling; Denies: back pain Skin: Denies: rash Neurological: Denies: headache, numbness Endocrine: Denies: increased thirst, increased urine Hematologic/Lymphatic: Denies: easy bruising All Other Systems: negative except mentioned in HPI Physical Exam Vital Signs Date Time Temp Pulse Resp B/P (MAP) Pulse Ox O2 Delivery O2 Flow Rate FiO2 12/15/18 21:03 97.5 95 16 128/88 95 Room Air vitals normal Sp02 EP Interpretation: reviewed, normal General Appearance: well appearing, no apparent distress, alert Head: normocephalic, atraumatic Eyes: bilateral eye PERRL, bilateral eye EOMI ENT: hearing grossly normal, normal pharynx Neck: full range of motion, supple, no meningismus Respiratory: chest non-tender, lungs clear, normal breath sounds Cardiovascular #1: regular rate, rhythm, no murmur Gastrointestinal: normal bowel sounds, non tender, no mass, no organomegaly, no bruit, non-distended Musculoskeletal: back normal, gait/station normal, normal range of motion, other - Left shoulder: There is effusion and tenderness anteriorly. Decrease range of motion especially abduction. Elbow nontender. Wrist nontender. No redness or warmth. Psychiatric: mood/affect normal Skin: warm/dry Procedures Splinting Splinting : Consent: Verbal Location: Left shoulder Pre-Made Type: Sling Pre-Proc Neuro Vasc Exam: normal Post-Proc Neuro Vasc Exam: normal Patient Tolerated: Well Complications: None Medical Decision Making Diagnostic Impression: Primary Impression: Bursitis of left shoulder ER Course Patient with a bursitis of her left shoulder. No evidence of ACS, PE, dissection, septic joint to name a few. Lab Results Impression labs normal EKG Diagnostic Results Rate: normal Rhythm: NSR ST Segments: no acute changes ASA given to the pt in ED: No Rhythm Strip Diag. Results EP Interpretation: yes Rate: 80 Rhythm: NSR - 80 Other X-Ray Diagnostic Results Other X-Ray Diagnostic Results : X-Ray ordered: Left shoulder x-rays # of Views/Limited Vs Complete: 3 View Indication: Pain EP Interpretation: Yes Interpretation: no dislocation, no soft tissue swelling, no fractures, other - Degenerative changes Impression: Other - Degenerative changes Electronically Signed by: Santos Sosa MD Last Vital Signs Date Time Temp Pulse Resp B/P (MAP) Pulse Ox O2 Delivery O2 Flow Rate FiO2 12/15/18 21:47 97.5 12/15/18 21:14 95 16 128/88 95 Room Air Status: improved Disposition: HOME, SELF-CARE Condition: Stable Scripts Ibuprofen* (MOTRIN*) 600 Mg Tablet 600 MG ORAL THREE TIMES A DAY, #30 TAB 0 Refills Prov: Santos Sosa MD 12/15/18 Hydrocodone/Acetaminophen 5-325* (HYDROCODONE/ACETAMINOPHEN 5-325*) 1 Each Tablet 1 TAB ORAL Q6H PRN for For Pain, #15 TAB 0 Refills Prov: Santos Sosa MD 12/15/18 Additional Instructions: Follow-up with your doctor in 7 days. If not better, you may need a referral to see orthopedic doctor. Return if symptom worsen. Santos Sosa MD Dec 15, 2018 22:13
[2018-12-15] MEDS ORDERED: Morphine Sulfate 4mg/ml Inj (IV USE ONLY) IVP ONE (22:15)
--- NOTE | 2018-12-15 22:20 | NUR ---
ER DISCHARGE NOTE: Patient is cleared to be discharged per ERMD, pt is aox4, on room air, with stable vital signs. pt was given dc and prescription instructions, pt was able to verbalize understanding, pt id band and iv site removed without complications. pt is able to ambulate with steady gait. pt took all belongings.
[2018-12-15 22:21] VITALS: BP 128/88
== END 2018-12-15 22:20 | disposition home or self-care (01) ==
LOC: EMR 21:22
DX: M75.52 Bursitis of left shoulder (principal); J45.909 Unspecified asthma, uncomplicated
CPT/HCPCS: 29105; 36415; 73030; 80048; 84484; 85025; 93005; 96374; 96375; 99284; J1885; J2270